=== PATIENT | female | born 1975 | race Caucasian/White ===

== ENCOUNTER → 2016-07-11 | Outpatient (CLI) | payer OTHER ==
[2014-03-10 01:48] VITALS: BP 111/56
== END | disposition home or self-care (01) ==
LOC: SPEC 17:00
PROVIDERS: ATTEND Family Medicine
DX: N39.0 Urinary tract infection, site not specified (principal)
CPT/HCPCS: 87086

== ENCOUNTER → 2017-09-23 | Outpatient (CLI) | payer OTHER | END | disposition home or self-care (01) | LOC: US 05:37 | DX: N32.89 Other specified disorders of bladder (principal) | CPT/HCPCS: 76705 ==